=== PATIENT | female | born 1965 ===

== ENCOUNTER → 2018-01-04 | Day surgery (SDC) | payer BC ==
--- NOTE | 2017-10-20 08:26 | HISTORY & PHYSICAL EXAMINATION ---
DATE OF ADMISSION: 11/17/2017 HISTORY OF PRESENT ILLNESS: The patient is a 51-year-old white female. She was found to be anemic and had a pelvic ultrasound. This was back in the early spring of 2016 with a small cyst on the ovary. Recommended for retest in 4 weeks. Gone on the left ovary, but had on the right, another cyst on the right ovary. Was having no pain. Not on any hormones and could not remember the size of this, but thought it was small as reports are not available. As she has gotten older, her periods have become more regular every 20-30 days, especially in her 40s. She bleeds for 3-5 days. When they were longer, they were heavy for 2-3 days, but now only has 1 day that is heavy. She changes protection every 30-60 minutes. Normal would be every 2-3 hours. She does note soiling. Occasionally, once or twice in the last couple of years. Notes 7-10 days prior to her menses, she has pretty severe lower leg pain and it does kind of involve her whole leg and this has been going on for a quite some time. She takes Advil with some help. She has never been and did not really try to get . She has a history of being on oral contraceptives and could not get regulated as a younger person. She is using condoms currently for contraception. She has no problems with intercourse. One lifetime partner. No sexually transmitted disease. No abnormal Pap smear. For her menorrhagia, an ultrasound was obtained. This was done on August 03. This revealed a uterus that be 102 mL in volume. The endometrium was 7.1 mL with possible hyperechoic round area with vascularity. The right ovary was normal in size, showing a 1.5-cm simple cystic area. The left ovary was normal, measuring 3.2 mL. I recommended a D&C hysteroscopy. This was originally scheduled, but had to be rescheduled and is now scheduled for November 17. We had talked about other options for her bleeding at that time including ablation and Mirena IUD. Initially, she had wanted a Mirena IUD, but has since changed her mind and will be just doing the D&C hysteroscopy. Active problems include anemia and hypothyroidism. PAST MEDICAL HISTORY: Significant for varicella. PAST SURGICAL HISTORY: She denies previous surgeries. FAMILY HISTORY: Significant for mother with hypertension and hypothyroidism. Same for her father. Sister with hypothyroidism. Paternal grandmother with stroke. Paternal grandfather with lung cancer. Paternal uncle with colon cancer. Denies breast and ovarian cancer. SOCIAL HISTORY: The patient uses condoms for contraception. She is . Denies tobacco use and drug use and has occasional alcohol use. CURRENT MEDICATIONS: Include Synthroid. ALLERGIES: SHE HAS ALLERGIES TO TETANUS VACCINATION. PHYSICAL EXAMINATION: GENERAL: This is a well-developed and well-nourished white female, in no acute distress. VITAL SIGNS: Blood pressure 124/68. Height 5 feet 6.5 inches, weight 194.9 pounds, and BMI 30.99. NECK: Supple without thyromegaly or lymphadenopathy. CHEST: Clear to auscultation bilaterally. CARDIOVASCULAR: Regular rate and rhythm without murmurs, gallops or rubs. ABDOMEN: Soft, nontender, and nondistended without appreciable masses. PELVIC: There is normal external female genitalia. Normal Bartholin, urethra and Geneva glands. Vagina is pink and moist with fair rugae. The cervix was nulliparous without evidence of lesions or discharge. On bimanual exam, the uterus was at midline, mobile, smooth, small and nontender. There were no appreciable adnexal masses or tenderness. The bladder was nontender. The urethra palpated normal. Rectovaginal exam was deferred. ASSESSMENT: This is a 51-year-old white female G0, who comes in with complaints to me about menorrhagia. Ultrasound shows a questionable hyperechoic vascular mass within the uterus. I have recommended D&C hysteroscopy plus or minus polypectomy. Additionally, she does need to be sampled. The risks of surgery were discussed with the patient including risks of anesthesia, bleeding requiring transfusion, infection, poor wound healing, approximately 1% chance of uterine perforation with need for further surgery, hospitalization or injury. Also, I discussed risk of injury to other organs including bowel, bladder, vessels, nerves, and ureters. The risks of any surgery were discussed with the patient including heart attack, blood clot, stroke or . Originally, we have consented the patient for Mirena placement, but she has since changed her mind regarding this. So, just planned D&C hysteroscopy. Also discussed the possibility of not seeing a polyp at the time of surgery. Consent was reviewed and signed. Surgery is planned for November 17. [facility] CENTERGregg
[2017-11-03 10:24] VITALS: Ht 167.6 cm; Wt 88.2 kg
[~2018-01-04] VITALS: Ht 167.6 cm; Wt 88.2 kg
[~2018-01-04] MED LIST: ATROPINE SULFATE 0.1 MG/ML 5ML SYR IV PRN; CHOL100010 PO; DEXAMETHASONE SOD INJ 4 MG/ML VIAL ONE; EpHEDrine SULFATE INJ 50 MG/ML AMP IV PRN; FENTANYL CITRATE INJ 50 MCG/1 ML 2 ML VIAL IV PRN; FENTANYL CITRATE INJ 50 MCG/1 ML 2 ML VIAL ONE; IBUPROFEN 600 MG TAB PO PRN; IRON PO; KETOROLAC TROMETHAMINE 30 MG/ML VIAL IV. PRN; KETOROLAC TROMETHAMINE 30 MG/ML VIAL ONE; LACTATED RINGER'S 1000ML 1,000 ML IV SCH; LEVO25TA5 PO; LIDOCAINE HCL 2% 2 ML VIAL (20MG/ML) ONE; MIDAZOLAM HCL 1 MG/ML 2ML VIAL ONE; MoRPHine SULFATE 2 MG/ML CARP IV PRN; ONDANSETRON INJ 2 MG/ML 2 ML VIAL ONE; OXYCODONE/ACETAMINOPHEN 5-325 TAB PO PRN; PROPOFOL IV EMULSION 10 MG/ML 20 ML VIAL IV ONE; SCOPOLAMINE 1.5 MG TDSY TD ONE; SODIUM CHLORIDE 0.9% 1000ML 1,000 ML IV SCH
--- NOTE | 2018-01-04 11:49 | History & Physical Bridge - SC ---
H&P Re-Evaluation Bridge Note: I have examined the patient, reviewed the History & Physical and in the interval since the performance of the History & Physical I have noted the following changes of clinical significance: No changes noted
--- NOTE | 2018-01-04 12:58 | [facility] Post Operative Brief Note ---
Immediate Operative Summary Operative Date Jan 04, 2018. Pre-Operative Diagnosis Menorrhagia, Endometrial Mass Post-Operative Diagnosis same Procedure(s) Performed D&C/HSC, removal of mass via myosure Surgeon Dr. Javi George Dianeticist Surgeon(s) 0 Estimated Blood Loss 10cc Findings Consistent with Post-Op Diagnosis Fluids (cc crystalloids) 500cc, deficit 250cc Specimens A. Endometrial Curettings Drains None Anesthesia Type General Complication(s) none Disposition Accompanied Pt To Recovery: no Disposition: Recovery Room / PACU
--- NOTE | 2018-01-04 13:00 | Discharge Instructions ---
Discharge Instructions Date of Service Jan 04, 2018. Visit Reason for Visit: Menorrhagia With Regular Cycle Discharge Discharge Diagnosis / Problem: s/p D&C/HSC, removal of mass Discharge Goals Goal(s): Specific goals Activity Recommendations Activity Limitations: per Instructions/Follow-up section Anesthesia . Post Anesthesia Instructions: If you have had General Anesthesia or IV Sedation: * Do not drive today. * Resume driving when surgeon permits. * Do not make important decisions or sign legal documents today. * Call surgeon for: 1. Temperature elevations greater than 101 degrees F. 2. Uncontrollable pain. 3. Excessive bleeding. 4. Persistent nausea and vomiting. 5. Medication intolerance (nausea, vomiting or rash). * For nausea and vomiting use only clear liquids such as: tea, soda, bouillon until nausea subsides, then gradually increase diet as tolerated. * If you have any concerns or questions, call your surgeon's office. If physician is unavailable and it is an emergency, call 911 or go to the nearest emergency room. . Instructions / Follow-Up Instructions / Follow-Up ACTIVITY RECOMMENDATIONS: * Avoid tampons, douching, hot tubs, pools, and intercourse until bleeding has stopped. * May shower as usual. * No strenuous activity for 24-48 hours. After 24-48 hours, you may do anything you feel like doing (driving and sports are okay). SPECIAL CARE INSTRUCTIONS: Special Diet: * Mild nausea may occur in the immediate post-operative period. * Take clear liquids such as tea, cola or bouillon until all nausea has subsided; you may then resume your normal diet. Special Care: * Light bleeding and vaginal spotting can last from a few days to 3-4 weeks. Call your doctor if bleeding becomes heavier than the heaviest part of your period. * Check your temperature twice a day for one week. If it goes above 100.4 degrees Fahrenheit (38.0 Celsius), notify your doctor. * Call your doctor's office for an appointment for 6 weeks after your surgery. FOLLOW-UP VISIT: Call your doctor's office for an appointment for 6 weeks after your surgery. Diet Recommendations Recommended Home Diet: no limitations, resume previous diet Procedures Procedures Performed: D&C/HSC, removal of mass via myosure Pending Studies Studies pending at discharge: no Medical Emergencies . Who to Call and When: Medical Emergencies: If at any time you feel your situation is an emergency, please call 911 immediately. . Non-Emergent Contact Non-Emergency issues call your: Flame Planer . . "Provider Documentation" section prepared by Serena George. .
--- NOTE | 2018-01-04 13:25 | OPERATIVE REPORT ---
DATE OF OPERATION: 01/04/2018 PREOPERATIVE DIAGNOSES: 1. Menorrhagia with regular cycles. 2. Endometrial mass. POSTOPERATIVE DIAGNOSES: Same. PROCEDURE: D&C, hysteroscopy with removal of mass via MyoSure. SURGEON: Serena George MD ANESTHESIA: General per laryngeal mask. ESTIMATED BLOOD LOSS: 10 mL. FLUIDS: 500 mL of IV fluid and 250 mL hysteroscopic deficit. INDICATIONS: The patient is a 52-year-old with menorrhagia who on workup was found to have an endometrial mass on SIS. FINDINGS: Uterus sounded to 8 cm, cavity appeared normal except a very small subserosal type endometrial mass noted on the anterior wall. Otherwise, the endometrial cavity was within normal limits. COMPLICATIONS: None. DRAINS: None. DISPOSITION: To recovery room in stable condition. PROCEDURE: The patient was taken the operating room where she was identified verbally and by bracelet. She was placed in dorsal supine position where general anesthesia was induced without difficulty. She was then placed in dorsal lithotomy position in [facility] stirrups and prepped and draped in a normal sterile fashion. Timeout was held identifying correct patient, procedure, positioning, and we did not need a preoperative antibiotic. The bladder was drained of approximately 500 mL of clear urine. Exam under anesthesia revealed a small normal size uterus, mobile, no adnexal masses. Weighted speculum was placed to posterior vagina. The anterior lip of the cervix was grasped with single tooth tenaculum. Uterus sounded to 8 cm, was sounded to a #23 Carola dilator. The MyoSure scope was introduced with the above noted findings. The MyoSure device was then introduced into the scope. All masses were removed and the MyoSure scope was removed. A D&C was performed in 365 degrees until a cat's cry was heard in all quadrants and the procedure was terminated. All instruments removed from the vagina. All sponge, lap and needle counts were correct x2. The patient tolerated the procedure well and was taken to recovery room in stable condition. I attest to the content of the Intraoperative Record and any orders documented therein. Any exception s are noted below.
[2018-01-04 13:50] VITALS: TEMP 36.4
[2018-01-04 14:00] VITALS: BP 155/80; PULSE 68; O2SAT 98
--- NOTE | 2018-01-04 14:11 | Anesthesia Progress Nt - [facility] ---
Anesthesia Post Op Note Date & Time Jan 04, 2018 at 14:11 Vital Signs Pain Intensity: 2 Vital Signs Past 12 Hours Date Time Temp Pulse Resp B/P (MAP) Pulse Ox O2 Delivery O2 Flow Rate FiO2 01/04/18 13:50 36.4 58 18 152/89 (110) 98 Room Air 01/04/18 13:39 37.0 63 16 157/97 98 Room Air 01/04/18 13:25 157/94 01/04/18 13:24 69 15 01/04/18 13:24 69 15 100 01/04/18 13:23 59 13 01/04/18 13:23 60 13 100 01/04/18 13:20 160/93 01/04/18 13:18 63 11 01/04/18 13:18 62 11 100 01/04/18 13:15 167/92 01/04/18 13:13 65 12 01/04/18 13:13 65 12 100 01/04/18 13:10 195/93 01/04/18 13:08 85 01/04/18 13:08 37.1 84 12 173/103 99 Diffusion Mask 6 01/04/18 13:08 85 173/103 92 01/04/18 11:35 36.7 80 16 175/90 (118) 100 Room Air Notes Mental Status: alert / awake / arousable, participated in evaluation Pt Amnestic to Procedure: Yes Nausea / Vomiting: adequately controlled Pain: adequately controlled Airway Patency, RR, SpO2: stable & adequate BP & HR: stable & adequate Hydration State: stable & adequate Anesthetic Complications: no major complications apparent
== END | disposition home or self-care (01) ==
LOC: X.SURG 11:17
PROVIDERS: ATTEND Obstetrics & Gynecology
DX: N92.0 Excessive and frequent menstruation with regular cycle (principal); N94.89 Other specified conditions associated with female genital organs and menstrual cycle; D64.9 Anemia, unspecified; Z88.7 Allergy status to serum and vaccine; G47.33 Obstructive sleep apnea (adult) (pediatric); E03.9 Hypothyroidism, unspecified; Z82.49 Family history of ischemic heart disease and other diseases of the circulatory system; Z83.49 Family history of other endocrine, nutritional and metabolic diseases; Z82.3 Family history of stroke; Z80.0 Family history of malignant neoplasm of digestive organs; Z80.1 Family history of malignant neoplasm of trachea, bronchus and lung; Z79.899 Other long term (current) drug therapy